=== PATIENT | female | born 1970 | race Caucasian/White ===

== ENCOUNTER 2019-07-23 16:12 | Inpatient (IN) ==
[2019-07-23] MEDS ORDERED: LACTATED RINGERS 1,000 ML IV ONE ×2 (17:08→18:18)
[2019-07-23 17:42] LABS: Basophils % 0.1 % (0.0-0.8); Hematocrit 41.1 VOL% (35.7-47.0); Hemoglobin 13.4 GM/DL (12.0-16.0); Immature Granulocytes % 0.7 %; Lymphocytes # 1.2 10*3/uL (1.4-4.0); Lymphocytes % 8.1 % (21.3-54.2); Mean Corpuscular HGB Conc 32.6 GM/DL (32-36); Mean Corpuscular Volume 79.3 FL (87-102); Mean Platelet Volume 9.8 FL (9.6-12.0); Monocytes % 6.5 % (1.7-12.7); Neutrophils % 84.6 % (38.7-73.9); Platelet Count 416 T/CUMM (130-400); Red Blood Count 5.18 MC/CUMM (3.8-5.5); Red Cell Distribution Width 15.9 % (9.3-17.3); White Blood Count 15.3 T/CUMM (4-12)
[2019-07-23] MEDS ORDERED: ONDANSETRON 4 MG/2 ML VIAL ONE (17:50)
[2019-07-23] MEDS ORDERED: ONDANSETRON 4 MG/2 ML VIAL IV STA (17:50)
[2019-07-23 18:00] LABS: Albumin 3.2 G/DL (3.4-5.0); Bilirubin,Total 0.4 MG/DL (0.2-1.0); Calcium 9.1 MG/DL (8.5-10.1); Osmolality,Calculated 297.2 MOS/KG (273-304); Total Protein 6.6 G/DL (6.4-8.3)
[2019-07-23 18:29] LABS: Apearance,Urine CLEAR (Clear); Bilirubin,Urine Negative (Negative); Blood, Urine Small mg/dL (Negative); Glucose,Urine (UA) >=500 mg/dL (Negative); Hyaline Casts,Urine 1 /LPF (0-3); Ketones,Urine 20 mg/dL (Negative); Mucus,Urine Occasional /LPF (Occasional); Nitrite,Urine Negative (Negative); Protein,Urine 100 MG/DL; Squamous Epithelial Cell,Urine Occasional /HPF (0-10); Urine Color Yellow (Yellow); Urine Specific Gravity 1.024 (1.001-1.035); Urine Urobilinogen < 2.0 EU/DL (0.2-1.0); WBC,Urine 1 /HPF (0-6)
[2019-07-23 19:00] LABS: ABG Base Excess -0.4 MMOL/L (-2.5-2.5); ABG Oxygen Saturation 97.5 % (95-100); ABG PCO2 32.8 MM HG (35-48); ABG PH 7.451 (7.35-7.45); ABG PO2 96.8 MM HG (80-95); ABG TCO2 20.1 MMOL/L (23-27)
[2019-07-23] MEDS ORDERED: GLUCAGON 1 MG VIAL IM PRN (19:23)
[2019-07-23] MEDS ORDERED: DEXTROSE 50% 25 GM/50 ML VIAL IV PRN (19:23)
[2019-07-23] MEDS ORDERED: ACETAMINOPHEN 325 MG TABLET PO PRN (19:23)
[2019-07-23] MEDS ORDERED: INSULIN GLARGINE 100 UNIT/ML SUBCUT ONE (21:00)
[2019-07-23] MEDS ORDERED: hydrALAZINE 20 MG/1 ML VIAL IV PRN (21:53)
[2019-07-23] MEDS: CIPROFLOXACIN INJ 400 MG in PREMIX 1 EACH IV SCH (22:12)
[2019-07-23] MEDS: ATORVASTATIN 20 MG TABLET PO SCH (22:12)
[2019-07-23] MEDS: traZODone 50 MG TABLET PO SCH (22:12)
[2019-07-23] MEDS: ENOXAPARIN 40 MG/0.4 ML SYRINGE SUBCUT SCH (22:13)
[2019-07-23] MEDS: OXcarbazepine 300 MG TABLET PO SCH (23:00)
[2019-07-23] MEDS: metroNIDAZOLE INJ 500 MG in PREMIX 1 EACH IV SCH (23:01)
[2019-07-23] MEDS: INSULIN LISPRO 100 UNIT/ML SUBCUT SCH (23:16)
[2019-07-23] MEDS: SODIUM CHLOR 0.9% KCL 20 MEQ 20 MEQ/1,000 ML BAG IV SCH (23:33)
[2019-07-24] MEDS: ONDANSETRON 4 MG/2 ML VIAL IV PRN ×5 (04:30→22:00)
[2019-07-24 04:31] LABS: Basophils % 0.1 % (0.0-0.8); Hematocrit 36.4 VOL% (35.7-47.0); Hemoglobin 11.9 GM/DL (12.0-16.0); Immature Granulocytes % 0.5 %; Immature Granulocytes Absolute 0.07 #; Lymphocytes # 1.7 10*3/uL (1.4-4.0); Lymphocytes % 11.9 % (21.3-54.2); Mean Corpuscular HGB Conc 32.7 GM/DL (32-36); Mean Corpuscular Volume 79.5 FL (87-102); Mean Platelet Volume 9.7 FL (9.6-12.0); Monocytes % 11.1 % (1.7-12.7); Neutrophils % 76.4 % (38.7-73.9); Platelet Count 364 T/CUMM (130-400); Red Blood Count 4.58 MC/CUMM (3.8-5.5); Red Cell Distribution Width 15.8 % (9.3-17.3); White Blood Count 14.5 T/CUMM (4-12)
[2019-07-24 04:57] LABS: Albumin 2.8 G/DL (3.4-5.0); Bilirubin,Total 0.5 MG/DL (0.2-1.0); Calcium 8.3 MG/DL (8.5-10.1); Osmolality,Calculated 294.8 MOS/KG (273-304); Total Protein 5.6 G/DL (6.4-8.3)
[2019-07-24] MEDS: metroNIDAZOLE INJ 500 MG in PREMIX 1 EACH IV SCH ×3 (05:07→21:59)
[2019-07-24] MEDS: CIPROFLOXACIN INJ 400 MG in PREMIX 1 EACH IV SCH ×2 (07:30→20:40)
[2019-07-24] MEDS: PANTOPRAZOLE 40 MG TABLET PO SCH (09:39)
[2019-07-24] MEDS: INSULIN LISPRO 100 UNIT/ML SUBCUT SCH ×4 (09:54→21:43)
[2019-07-24] MEDS: OXcarbazepine 300 MG TABLET PO SCH ×2 (11:01→20:41)
[2019-07-24] MEDS: SODIUM CHLOR 0.9% KCL 20 MEQ 20 MEQ/1,000 ML BAG IV SCH ×2 (18:55→20:39)
[2019-07-24] MEDS: ENOXAPARIN 40 MG/0.4 ML SYRINGE SUBCUT SCH (20:41)
[2019-07-24] MEDS: traZODone 50 MG TABLET PO SCH (20:41)
[2019-07-24] MEDS: ATORVASTATIN 20 MG TABLET PO SCH (20:41)
[2019-07-25] MEDS: ONDANSETRON 4 MG/2 ML VIAL IV PRN ×3 (01:37→12:48)
[2019-07-25] MEDS ORDERED: PROMETHAZINE 25 MG/1 ML VIAL IM ONE (04:12)
[2019-07-25] MEDS: metroNIDAZOLE INJ 500 MG in PREMIX 1 EACH IV SCH ×3 (04:33→21:43)
[2019-07-25] MEDS: SODIUM CHLOR 0.9% KCL 20 MEQ 20 MEQ/1,000 ML BAG IV SCH ×4 (04:34→23:01)
[2019-07-25] MEDS: INSULIN LISPRO 100 UNIT/ML SUBCUT SCH ×4 (07:30→21:44)
[2019-07-25] MEDS: CIPROFLOXACIN INJ 400 MG in PREMIX 1 EACH IV SCH ×2 (08:34→20:30)
[2019-07-25] MEDS: PANTOPRAZOLE 40 MG TABLET PO SCH (08:37)
[2019-07-25] MEDS: OXcarbazepine 300 MG TABLET PO SCH ×2 (08:37→20:30)
[2019-07-25] MEDS: PROMETHAZINE 25 MG/1 ML VIAL IM PRN ×3 (09:43→23:02)
[2019-07-25] MEDS: ATORVASTATIN 20 MG TABLET PO SCH (20:30)
[2019-07-25] MEDS: traZODone 50 MG TABLET PO SCH (20:30)
[2019-07-25] MEDS: ENOXAPARIN 40 MG/0.4 ML SYRINGE SUBCUT SCH (20:31)
[2019-07-26] MEDS: SODIUM CHLOR 0.9% KCL 20 MEQ 20 MEQ/1,000 ML BAG IV SCH ×2 (05:09→18:26)
[2019-07-26] MEDS: metroNIDAZOLE INJ 500 MG in PREMIX 1 EACH IV SCH (05:09)
[2019-07-26] MEDS: PROMETHAZINE 25 MG/1 ML VIAL IM PRN ×2 (07:39→14:32)
[2019-07-26] MEDS: OXcarbazepine 300 MG TABLET PO SCH ×2 (08:36→21:00)
[2019-07-26] MEDS: PANTOPRAZOLE 40 MG TABLET PO SCH (08:37)
[2019-07-26] MEDS: INSULIN LISPRO 100 UNIT/ML SUBCUT SCH ×4 (08:37→20:59)
[2019-07-26] MEDS: CIPROFLOXACIN INJ 400 MG in PREMIX 1 EACH IV SCH (10:12)
[2019-07-26] MEDS ORDERED: CALCIUM CARBONATE CHEW 500 MG TABLET PO PRN (10:38)
[2019-07-26] MEDS: METOCLOPRAMIDE 10 MG/2 ML VIAL IV SCH ×2 (13:54→17:16)
[2019-07-26] MEDS: ATORVASTATIN 20 MG TABLET PO SCH (20:59)
[2019-07-26] MEDS: traZODone 50 MG TABLET PO SCH (20:59)
[2019-07-26] MEDS: ENOXAPARIN 40 MG/0.4 ML SYRINGE SUBCUT SCH (20:59)
[2019-07-27] MEDS: METOCLOPRAMIDE 10 MG/2 ML VIAL IV SCH ×2 (00:45→05:40)
[2019-07-27] MEDS: SODIUM CHLOR 0.9% KCL 20 MEQ 20 MEQ/1,000 ML BAG IV SCH ×2 (03:02→09:48)
[2019-07-27] MEDS: INSULIN LISPRO 100 UNIT/ML SUBCUT SCH ×2 (08:48→12:37)
[2019-07-27] MEDS: PANTOPRAZOLE 40 MG TABLET PO SCH (08:49)
[2019-07-27] MEDS: OXcarbazepine 300 MG TABLET PO SCH (08:49)
[2019-07-27 09:56] VITALS: BP 158/98
== END 2019-07-27 11:48 | disposition home or self-care (01) | DRG 74 ==
LOC: EDBD → EDUNIT# → N.EDINP 16:12 → N.ED 16:12 → N.2W 20:24 → SUATTDRO 07-25 10:47 → N.5E 07-25 12:23
PROVIDERS: ADMIT Internal Medicine Geriatric Medicine; ATTEND Internal Medicine